=== PATIENT | female | born 1985 | race Caucasian/White ===

== ENCOUNTER 2019-10-12 22:52 | Emergency (ER) | payer MEDICAID ==
[~2019-10-12] VITALS: Ht 152.4 cm; Wt 56.7 kg
[2019-10-12 22:56] VITALS: BP 89/51
--- NOTE | 2019-10-12 23:01 | NUR ---
PT TAKEN TO BED 11 VIA WHEELCHAIR.
[2019-10-12] MEDS: LIDOCAINE MPF 1% 10 MG/ML VIAL INJ ONE ×2 (23:15→23:55)
[2019-10-12] MEDS ORDERED: BACITRACIN OINT 500 UNITS/GM PKT TP ONE (23:38)
[2019-10-12] MEDS: BACITRACIN OINT 500 UNITS/GM PKT TP ONE (23:40)
--- NOTE | 2019-10-12 23:49 | NUR ---
Patient discharged BY DR. DALY with v/s stable. Written and verbal after care instructions given and explained BY DR. DALY. Patient alert, oriented and verbalized understanding of instructions. Ambulatory with steady gait. All questions addressed prior to discharge BY . ID band removed. Patient advised to follow up with PMD. Rx of NAPROSYN given. Patient educated on indication of medication including possible reaction and side effects. Opportunity to ask questions provided and answered.
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
== END 2019-10-12 23:49 | disposition home or self-care (01) ==
LOC: MED 22:52
DX: S61.412A Laceration without foreign body of left hand, initial encounter (principal); W45.8XXA Other foreign body or object entering through skin, initial encounter; Y93.89 Activity, other specified; Y92.89 Other specified places as the place of occurrence of the external cause; Y99.8 Other external cause status
CPT/HCPCS: 12002; 99282; J2001